=== PATIENT | male | born 1950 | race Caucasian/White ===

== ENCOUNTER 2017-04-15 09:50 | Emergency (ER) | payer MEDICARE, BC ==
[~2017-04-15] VITALS: Ht 175.3 cm; Wt 94.8 kg
[2017-04-15 09:50] VITALS: BP 171/93
[2017-04-15] MEDS ORDERED: Acetaminophen 500mg (ES) tab PO ONE (10:15)
--- NOTE | 2017-04-15 11:41 | Diagnostic Imaging Report ---
Indication: Left-sided chest pain Technique: One view of the chest Comparison: none Findings: Linear and reticular opacities are seen in the left retrocardiac region. The remainder the lungs and pleural spaces are clear. Heart size is normal. The bones are grossly intact Impression: Retrocardiac opacity, likely atelectasis or scarring. Infiltrate or contusion not completely excludable. No acute process otherwise
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
[2017-04-15] MEDS ORDERED: CYCLOBENZAPRINE10 MG ORAL (12:08)
[2017-04-15] MEDS ORDERED: ACETAMINOPHEN-1 EAC1 ORAL (12:08)
[2017-04-15] MEDS ORDERED: Cyclobenzaprine 10mg Tab ORAL ONE (12:15)
[2017-04-15 12:20] VITALS: BP 171/93
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
--- NOTE | 2017-04-18 15:33 | Cardiology Report ---
APPROVED REPORT EKG Measurement Heart [id number] [id number] Normal sinus rhythm Moderate voltage criteria for LVH, may be normal variant T wave abnormality, consider lateral ischemia Abnormal ECG
== END 2017-04-15 12:22 | disposition home or self-care (01) ==
LOC: EDBD 09:50 → EMR 10:40
DX: S22.32XA Fracture of one rib, left side, initial encounter for closed fracture (principal); V43.52XA Car driver injured in collision with other type car in traffic accident, initial encounter; Y92.410 Unspecified street and highway as the place of occurrence of the external cause; M79.605 Pain in left leg; E11.9 Type 2 diabetes mellitus without complications; I25.10 Atherosclerotic heart disease of native coronary artery without angina pectoris; Z95.5 Presence of coronary angioplasty implant and graft; Z88.0 Allergy status to penicillin
CPT/HCPCS: 71045; 93005; 99284